=== PATIENT | male | born 1945 | race Caucasian/White ===

== ENCOUNTER 2017-06-20 04:00 | Inpatient (IN) ==
[2017-06-15 10:27] LABS: HEMATOCRIT 52.1 % (42.0-52.0); HEMOGLOBIN 18.4 g/dL (14.0-18.0); MCH 29.7 PG (27-31); MCHC 35.3 g/dL (33-37); MPV 10.4 FL (7.4-10.4); RBC 6.2 XMIL (4.7-6.1)
[2017-06-15 11:10] LABS: AGAP 11; BUN 14 mg/dL (8-22); CALCIUM 9.2 mg/dL (8.8-10.2); CHLORIDE 99 mmol/L (98-107); COSMO 280; SODIUM 140 mmol/L (136-145); TCO2 30 mmol/L (25-35)
[2017-06-20] MEDS ORDERED: VANCOMYCIN 1 GM/NS 1 GM/250 ML IVPB ONE (05:35)
[2017-06-20] MEDS ORDERED: LR 1,000 ML ONE (05:36)
[2017-06-20] MEDS ORDERED: DIPRIVAN 1% ONE (06:28)
[2017-06-20] MEDS ORDERED: XYLOCAINE-MPF 2% ONE ×2 (06:29→11:35)
[2017-06-20] MEDS ORDERED: SODIUM CHLORIDE 0.9% 10 ML ONE (06:30)
[2017-06-20] MEDS ORDERED: NORCURON ONE (06:30)
[2017-06-20] MEDS ORDERED: FENTANYL ONE ×2 (06:34→10:59)
[2017-06-20] MEDS ORDERED: NS 2,000 ML ONE (06:34)
[2017-06-20] MEDS ORDERED: HEPARIN ONE ×2 (06:34)
[2017-06-20] MEDS ORDERED: KEFZOL ONE (06:34)
[2017-06-20] MEDS ORDERED: NEO-SYNEPHRINE ONE (06:39)
[2017-06-20] MEDS ORDERED: EPHEDRINE ONE (07:07)
[2017-06-20] MEDS ORDERED: SENSORCAINE 0.5%-EPI 1:200,000 ONE (07:20)
[2017-06-20 07:52] LABS: URINE MICRO REVIEW NEEDED? NO; URINE SOURCE CATH
[2017-06-20 08:03] LABS: BILIRUBIN URINE NEGATIVE (NEGATIVE); BLOOD URINE NEGATIVE (NEGATIVE); COLOR YELLOW; GLUCOSE URINE NEGATIVE (NEGATIVE); LEUKOCYTES URINE NEGATIVE (NEGATIVE); NITRITE URINE NEGATIVE (NEGATIVE); PH URINE 7.5; PROTEIN URINE NEGATIVE (NEGATIVE); TURBIDITY URINE CLEAR (CLEAR); UROBILINOGEN URINE NORMAL (NORMAL)
[2017-06-20 08:04] LABS: UR EPITHELIAL CELLS <10 /HPF (<10); URINE BACTERIA NEGATIVE /HPF; URINE RBC <10 /HPF (<10); URINE WBC <10 /HPF (<10)
[2017-06-20] MEDS ORDERED: DECADRON ONE (08:15)
[2017-06-20] MEDS ORDERED: ZOFRAN ONE ×2 (08:15→10:54)
[2017-06-20] MEDS ORDERED: ROBINUL ONE ×2 (09:11→10:54)
[2017-06-20] MEDS ORDERED: NEOSTIGMINE ONE ×2 (09:11→11:02)
[2017-06-20] MEDS: MORPHINE ONE ×3 (09:37→10:05)
[2017-06-20] MEDS ORDERED: NS 1,000 ML ONE (10:06)
[2017-06-20] MEDS ORDERED: BYSTOLIC PO PRN (10:33)
[2017-06-20] MEDS ORDERED: ZOFRAN IV PRN (10:33)
[2017-06-20] MEDS ORDERED: ANDROGEL TD PRN (10:33)
[2017-06-20] MEDS ORDERED: NORCO-10 PO PRN (10:33)
[2017-06-20] MEDS ORDERED: DILAUDID IV PRN (10:33)
[2017-06-20] MEDS: NS 1,000 ML IV SCH (12:08)
[2017-06-20] MEDS: NICODERM PATCH TD SCH (16:30)
[2017-06-20] MEDS: CATAPRES PO PRN (16:32)
[2017-06-20] MEDS: NORCO-10 PO PRN ×2 (16:37→21:29)
[2017-06-20] MEDS: VANCOMYCIN 1 GM/NS 1 GM/250 ML IVPB IV SCH (17:51)
[2017-06-20] MEDS: LOTREL 5/20 MG PO SCH (21:30)
[2017-06-20] MEDS: XANAX PO PRN (21:30)
[2017-06-20] MEDS: PERIDEX MT SCH (21:30)
[2017-06-20] MEDS ORDERED: CHLORASEPTIC SPRAY MT PRN (23:46)
[2017-06-21] MEDS: PRILOSEC PO SCH ×2 (00:36→20:15)
[2017-06-21] MEDS: NS 1,000 ML IV SCH ×3 (02:57→10:59)
[2017-06-21] MEDS: NORCO-10 PO PRN ×5 (02:59→23:30)
[2017-06-21 06:12] LABS: BASO% 0.4 % (0.0-0.8); EOS# 0.09 X1000 (0.0-0.7); EOS% 0.4 % (0.0-10.0); HEMATOCRIT 47.9 % (42.0-52.0); HEMOGLOBIN 16.3 g/dL (14.0-18.0); IMM GRAN# 0.09 X1000 (0.0-0.04); IMM GRAN% 0.4 % (0.0-0.5); LYMPH# 9.78 X1000 (1.2-3.4); LYMPH% 38.8 % (20.5-51.1); MANUAL DIFF NEEDED? NO; MCH 29.4 PG (27-31); MCV 86.5 FL (81-99); MONO# 1.81 X1000 (0.11-0.59); MONO% 7.2 % (1.7-9.3); MPV 10.7 FL (7.4-10.4); NEUT% 52.8 % (42.2-75.2); PLT 302 X1000 (130-400); RBC 5.54 XMIL (4.7-6.1)
[2017-06-21 06:28] LABS: AGAP 10; BUN 7 mg/dL (8-22); CALCIUM 8.8 mg/dL (8.8-10.2); CHLORIDE 101 mmol/L (98-107); COSMO 278; POTASSIUM 4.6 mmol/L (3.5-5.1); SODIUM 140 mmol/L (136-145); TCO2 29 mmol/L (25-35)
[2017-06-21] MEDS: VANCOMYCIN 1 GM/NS 1 GM/250 ML IVPB IV SCH (06:37)
[2017-06-21] MEDS: PERIDEX MT SCH ×2 (10:58→20:15)
[2017-06-21] MEDS: LOTREL 5/20 MG PO SCH ×2 (10:59→20:15)
[2017-06-21] MEDS: ASPIRIN PO SCH (10:59)
[2017-06-21] MEDS: NICODERM PATCH TD SCH (10:59)
[2017-06-21] MEDS: LASIX PO SCH (10:59)
[2017-06-21] MEDS: CATAPRES PO PRN ×2 (11:06→17:40)
[2017-06-21] MEDS: XANAX PO PRN (17:39)
[2017-06-21] MEDS: BYSTOLIC PO SCH (20:15)
[2017-06-22] MEDS: NS 1,000 ML IV SCH (01:53)
[2017-06-22] MEDS: NORCO-10 PO PRN ×3 (04:11→11:42)
[2017-06-22] MEDS: XANAX PO PRN ×3 (04:17→22:19)
[2017-06-22] MEDS: LOTREL 5/20 MG PO SCH ×3 (07:58→22:19)
[2017-06-22] MEDS: NICODERM PATCH TD SCH ×2 (07:58→08:09)
[2017-06-22] MEDS: LASIX PO SCH ×2 (07:58→08:09)
[2017-06-22] MEDS: ASPIRIN PO SCH (07:59)
[2017-06-22] MEDS: PERIDEX MT SCH ×2 (07:59→22:20)
[2017-06-22 09:27] LABS: HEMATOCRIT 43.2 % (42.0-52.0); HEMOGLOBIN 14.7 g/dL (14.0-18.0)
[2017-06-22] MEDS ORDERED: DIPRIVAN 1% ONE ×2 (14:02→14:05)
[2017-06-22] MEDS ORDERED: XYLOCAINE-MPF 2% ONE (14:05)
[2017-06-22] MEDS ORDERED: QUELICIN (DOSE) ONE (14:24)
[2017-06-22] MEDS ORDERED: VANCOMYCIN 1 GM/NS 1 GM/250 ML IVPB ONE (14:27)
[2017-06-22] MEDS ORDERED: FENTANYL ONE (15:37)
[2017-06-22] MEDS: MORPHINE ONE ×3 (16:22→16:33)
[2017-06-22] MEDS: PRILOSEC PO SCH (22:19)
[2017-06-22] MEDS: BYSTOLIC PO SCH (22:19)
[2017-06-23] MEDS: CATAPRES PO PRN (00:34)
[2017-06-23] MEDS: NS 1,000 ML IV SCH (03:16)
[2017-06-23 06:11] LABS: BASO% 0.2 % (0.0-0.8); EOS# 0.03 X1000 (0.0-0.7); EOS% 0.1 % (0.0-10.0); HEMATOCRIT 33.4 % (42.0-52.0); HEMOGLOBIN 11.2 g/dL (14.0-18.0); IMM GRAN# 0.08 X1000 (0.0-0.04); IMM GRAN% 0.3 % (0.0-0.5); LYMPH# 7.98 X1000 (1.2-3.4); LYMPH% 30.7 % (20.5-51.1); MANUAL DIFF NEEDED? YES; MCH 29.7 PG (27-31); MCHC 33.5 g/dL (33-37); MCV 88.6 FL (81-99); MONO# 2.21 X1000 (0.11-0.59); MONO% 8.5 % (1.7-9.3); NEUT% 60.2 % (42.2-75.2); PLT 340 X1000 (130-400); RBC 3.77 XMIL (4.7-6.1)
[2017-06-23 06:41] LABS: LYMPHS 22 % (21-51); MONO 5 % (1-9)
[2017-06-23] MEDS: NICODERM PATCH TD SCH (09:03)
[2017-06-23] MEDS: PERIDEX MT SCH ×2 (09:03→20:52)
[2017-06-23] MEDS: LOTREL 5/20 MG PO SCH ×2 (09:03→20:52)
[2017-06-23] MEDS: ASPIRIN PO SCH (09:03)
[2017-06-23] MEDS: LASIX PO SCH (09:03)
[2017-06-23] MEDS ORDERED: SALINE LOCK IV FLUID XX ONE (12:31)
[2017-06-23] MEDS ORDERED: MIRALAX PO ONE (16:01)
[2017-06-23] MEDS: NORCO-10 PO PRN (16:18)
[2017-06-23] MEDS: BYSTOLIC PO SCH (20:52)
[2017-06-23] MEDS: XANAX PO PRN (20:52)
[2017-06-23] MEDS: PRILOSEC PO SCH (20:52)
[2017-06-24] MEDS ORDERED: LOPRESSOR IV ONE ×2 (04:23→05:36)
[2017-06-24 04:47] LABS: BASO% 0.5 % (0.0-0.8); EOS# 0.46 X1000 (0.0-0.7); EOS% 1.7 % (0.0-10.0); HEMATOCRIT 34.6 % (42.0-52.0); HEMOGLOBIN 11.7 g/dL (14.0-18.0); IMM GRAN# 0.12 X1000 (0.0-0.04); IMM GRAN% 0.4 % (0.0-0.5); LYMPH# 10.17 X1000 (1.2-3.4); LYMPH% 36.7 % (20.5-51.1); MANUAL DIFF NEEDED? YES; MCH 29.6 PG (27-31); MCHC 33.8 g/dL (33-37); MCV 87.6 FL (81-99); MONO# 1.93 X1000 (0.11-0.59); MPV 10.5 FL (7.4-10.4); NEUT% 53.7 % (42.2-75.2); PLT 449 X1000 (130-400); RBC 3.95 XMIL (4.7-6.1)
[2017-06-24 05:00] LABS: AGAP 12; BUN 12 mg/dL (8-22); CALCIUM 8.7 mg/dL (8.8-10.2); CHLORIDE 99 mmol/L (98-107); COSMO 277; MAGNESIUM 1.8 mg/dL (1.5-2.7); POTASSIUM 4.2 mmol/L (3.5-5.1); SODIUM 137 mmol/L (136-145); TCO2 26 mmol/L (25-35)
[2017-06-24 05:51] LABS: EOS 1 % (1-10); LYMPHS 33 % (21-51); MONO 7 % (1-9)
[2017-06-24] MEDS: XANAX PO PRN (06:46)
[2017-06-24] MEDS ORDERED: MIRALAX PO SCH (09:00)
[2017-06-24] MEDS: NICODERM PATCH TD SCH (09:34)
[2017-06-24] MEDS: ASPIRIN PO SCH (09:35)
[2017-06-24] MEDS: LOTREL 5/20 MG PO SCH (09:35)
[2017-06-24] MEDS: LASIX PO SCH (09:35)
[2017-06-24] MEDS: PERIDEX MT SCH (09:36)
[2017-06-24 12:24] VITALS: BP 139/85
== END 2017-06-24 16:08 | disposition home health service (06) ==
LOC: SURHOLD 04:00 → 4N 09:38
PROVIDERS: ADMIT Surgery; ATTEND Surgery

== ENCOUNTER 2017-06-24 17:43 | Inpatient (IN) ==
[2017-06-24] MEDS ORDERED: ASPIRIN PO STA (17:50)
[2017-06-24 18:27] LABS: BASO% 0.6 % (0.0-0.8); EOS# 0.54 X1000 (0.0-0.7); EOS% 2.2 % (0.0-10.0); HEMATOCRIT 32.9 % (42.0-52.0); HEMOGLOBIN 11.2 g/dL (14.0-18.0); IMM GRAN# 0.09 X1000 (0.0-0.04); IMM GRAN% 0.4 % (0.0-0.5); LYMPH# 9.94 X1000 (1.2-3.4); LYMPH% 40.1 % (20.5-51.1); MANUAL DIFF NEEDED? NO; MCH 29.6 PG (27-31); MONO# 1.55 X1000 (0.11-0.59); MONO% 6.2 % (1.7-9.3); MPV 10.4 FL (7.4-10.4); NEUT% 50.5 % (42.2-75.2); PLT 492 X1000 (130-400); RBC 3.78 XMIL (4.7-6.1)
[2017-06-24 18:37] LABS: INR 0.96; PROTIME 10.1 Seconds (9.2-11.7); PTT 31.1 Seconds (22.0-36.0)
[2017-06-24 18:49] LABS: AGAP 14; ALBUMIN 3.5 g/dL (3.5-5.0); ALKALINE PHOSPHATASE 58 U/L (32-122); BUN 16 mg/dL (8-22); CALCIUM 8.8 mg/dL (8.8-10.2); CHLORIDE 96 mmol/L (98-107); CK PROFILE 17 U/L (24-204); COSMO 273; GOT 16 U/L (10-34); GPT 20 U/L (10-44); MAGNESIUM 1.7 mg/dL (1.5-2.7); POTASSIUM 3.7 mmol/L (3.5-5.1); SODIUM 134 mmol/L (136-145); TCO2 24 mmol/L (25-35); TOTAL PROTEIN 6.7 g/dL (6.3-8.3)
--- NOTE | 2017-06-24 19:11 | Diag Imaging Result Doc PS360 ---
EXAM: CHEST-2 VIEWS HISTORY: CP TECHNIQUE: PA and lateral chest COMMENT: The thoracic aorta is markedly tortuous. The appearance the chest has not changed significantly since the previous examination of 03/16/2013. IMPRESSION: Stable chest. Electronically signed by Jemal Todd 06/24/2017 7:08 PM
[2017-06-24] MEDS ORDERED: ZOFRAN IV PRN (23:49)
[2017-06-24] MEDS ORDERED: NS 1,000 ML IV SCH (23:49)
[2017-06-24] MEDS ORDERED: BYSTOLIC PO PRN (23:49)
[2017-06-24] MEDS ORDERED: CATAPRES PO PRN (23:49)
[2017-06-25] MEDS: XANAX PO PRN ×2 (00:29→21:25)
--- NOTE | 2017-06-25 01:07 | HISTORY AND PHYSICAL ---
PRIMARY CARE PHYSICIAN: Dr. Juve Carrillo. CHIEF COMPLAINT: Palpitations. HISTORY OF PRESENTING ILLNESS: A 71-year-old male with a history of hypertension, CLL and transient atrial fibrillation in the past, who recently underwent AAA repair and postoperatively developed complications of a hematoma and apparently had a drain placed. Had went home when he developed some palpitation-like symptoms. The patient states that he had returned to the emergency department earlier today for that and at that time was found to be in atrial fibrillation with RVR and this was transient apparently and his rate had come down within normal limits. He was evaluated by Cardiology and at that time he was told to follow up with his numerical control drill press operator for possibly an event monitor. However, patient states that he went home and then he developed more palpitation symptoms and returned to the emergency department. He was evaluated in the ER. He was still in atrial fibrillation and due to his presenting symptoms it was thought that we will place him for observation for further evaluation and management. PAST MEDICAL HISTORY: Includes atrial fibrillation transiently, hypertension, CLL. 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 ALLERGIES: Levaquin and amoxicillin. CURRENT MEDICATIONS: As listed in the medication reconciliation sheet. SOCIAL HISTORY: Has a longstanding history of smoking. States that he quit a few days ago. History of alcohol use daily. Denies any illicit drug use. FAMILY HISTORY: No history of coronary artery disease. REVIEW OF SYSTEMS: Twelve point review of systems as in HPI. Other systems negative. PHYSICAL EXAMINATION: GENERAL: Cooperative, friendly male. He is resting comfortably now. VITAL SIGNS: Temperature 97.5 degrees, pulse 64, respiration 18, blood pressure 134/90. HEENT: Atraumatic, normocephalic. Extraocular movements intact. PERRLA. NECK: No masses. CHEST: Clear to auscultation. CARDIOVASCULAR: Regular rate and rhythm. ABDOMEN: Soft. Positive bowel sounds. EXTREMITIES: No edema. SKIN: There is a moderate amount of bruising on his back. GENITOURINARY: No bladder distention. SKIN: Warm. LABORATORIES AND STUDIES: WBCs 24.81, hemoglobin 11.2, hematocrit 32.9, platelets 492,000. Sodium 134, potassium 3.7, chloride 96, CO2 24, BUN is 16, creatinine 0.8, glucose is 169. ASSESSMENT: This is a 71-year-old male with a history of hypertension, CLL, and transient atrial fibrillation in the past. Had presented to the emergency department due to palpation-like symptoms. Patient recently underwent AAA repair and states that he had some postoperative complications with hematoma and subsequently had BAY drain placed. He developed palpitations while he was at home and subsequently returned to the emergency department and due to his presenting symptoms it was thought that we will place patient in hospital for observation for further evaluation and management. 1. Postoperative atrial fibrillation, seems transient. 2. Status post abdominal aortic aneurysm repair. 3. CLL. 4. Hypertension. 5. Tobacco abuse. PLAN: 1. We will admit patient to medical floor with telemetry. 2. We will consult his numerical control drill press operator for further evaluation. 3. Will do courtesy consult to General Surgery due to his recent AAA repair and hematoma development. 4. We will monitor his blood pressures. Resume antihypertensive agent. 5. We will restart his home medications. 6. We will put patient on DVT prophylaxis with SCDs. 7. We will continue to follow and reassess. cc: Checo Figueroa MD
[2017-06-25 06:18] LABS: BASO% 0.9 % (0.0-0.8); EOS# 0.63 X1000 (0.0-0.7); EOS% 3.2 % (0.0-10.0); HEMATOCRIT 32.9 % (42.0-52.0); HEMOGLOBIN 10.9 g/dL (14.0-18.0); IMM GRAN# 0.06 X1000 (0.0-0.04); IMM GRAN% 0.3 % (0.0-0.5); LYMPH# 8.89 X1000 (1.2-3.4); LYMPH% 44.7 % (20.5-51.1); MANUAL DIFF NEEDED? NO; MCH 29.3 PG (27-31); MCHC 33.1 g/dL (33-37); MCV 88.4 FL (81-99); MONO# 1.22 X1000 (0.11-0.59); MONO% 6.1 % (1.7-9.3); MPV 10.4 FL (7.4-10.4); NEUT% 44.8 % (42.2-75.2); PLT 516 X1000 (130-400); RBC 3.72 XMIL (4.7-6.1)
[2017-06-25 06:35] LABS: AGAP 12; BUN 14 mg/dL (8-22); CALCIUM 8.6 mg/dL (8.8-10.2); CHLORIDE 101 mmol/L (98-107); CK PROFILE 13 U/L (24-204); COSMO 284; SODIUM 141 mmol/L (136-145); TCO2 28 mmol/L (25-35)
[2017-06-25] MEDS: ASPIRIN PO SCH ×2 (09:52→11:55)
[2017-06-25] MEDS: LOTREL 5/20 MG PO SCH ×3 (09:53→21:16)
[2017-06-25] MEDS: LASIX PO SCH ×2 (09:53→11:55)
[2017-06-25] MEDS: PRILOSEC PO SCH ×2 (09:53→11:55)
[2017-06-25] MEDS: NORCO-10 PO PRN ×2 (13:19→21:21)
--- NOTE | 2017-06-25 14:22 | PROGRESS NOTE ---
DATE: 06/25/2017 SUBJECTIVE: The patient returned to the ER last night after discharge with recurrent palpitations and a little shortness of breath. He was found to be in atrial fibrillation with rapid rate. Otherwise his abdomen is not hurting much. His groin is doing well. There is no active bleeding. He is eating and having no other systemic complaints. He has been admitted to the hospitalist with cardiovascular reconsultation initiated. OBJECTIVE: He is afebrile. Vital signs are stable now. His pulse is in the 60s as of this morning, blood pressure 141/76.General: He is awake and alert. No acute distress. GI: Soft, nontender, nondistended. Extremities: The left groin has bruising but no hematoma. There is a drain with old bloody fluid. His left foot is warm and right foot is warm and appeared to be well perfused. LABORATORY: White blood cell count 19,000, hemoglobin 11, hematocrit 33. Basic metabolic profile reviewed and unremarkable. ASSESSMENT/PLAN: A 71-year-old male status post endo abdominal aortic aneurysm repair and evacuation of left groin hematoma now with recurrent atrial fibrillation with RVR. Further recommendations are per Cardiology. From an anticoagulant standpoint I do think it would be safe to initiate anticoagulants as needed. cc: Jamey Dixon MD
--- NOTE | 2017-06-25 14:32 | PROGRESS NOTE ---
DATE: 06/25/2017 SUBJECTIVE: This patient stated that he is feeling better, but he is complaining about his a-fib. He is being kept n.p.o. and I restarted his diet and also his home medication. He is not complaining of chest pain or shortness of breath. His abdomen looks fine. No signs of peritoneal irritation. On the left side, there is a big hematoma that is related with his previous surgery that is getting better. Also, he has a drain coming out from this area with some blood in it. OBJECTIVE: Vital Signs: Temperature 97.9 degrees, pulse 67, respiratory rate 20, blood pressure 141/76, O2 saturation 96 on room air. At the moment of my evaluation, his heart rate went up to 120s/130s. HEENT: Head normocephalic. No trauma. PERRLA. Neck: Supple. No jugular venous distention. No masses. Central trachea. Chest: Clear to auscultation. No wheezing. No rales. Cardiovascular: Irregularly irregular rate and rhythm, tachycardic. Abdomen: Soft. Mild tenderness to palpation at the level of the left lower quadrant. He has a drain coming out from this area with some blood in it. He has a large hematoma extending to the left thigh that looks fine. Extremities: No edema. No clubbing. No cyanosis. Neurological examination: The patient is alert and oriented x3. No focal neurological deficits. LABORATORY: WBC 19.8, hemoglobin 10.9, hematocrit 32.9, platelets 516. Sodium 141, potassium 4, chloride 101, bicarbonate 28, BUN 14, creatinine 0.7, glucose 138, calcium 8.6. Troponins negative x3. ASSESSMENT AND PLAN: 1. Postoperative atrial fibrillation. He has been having rapid ventricular response on and off. I will restart his home medications pending cardiology evaluation. 2. Status post abdominal aortic aneurysm repair. Aware. This looks fine. He has a drain coming out from his left lower quadrant abdomen. Everything looks stable. 3. Chronic lymphocytic leukemia, aware. 4. Hypertension. We will continue with home medication. 5. Tobacco abuse. This patient has been highly advised against tobacco use. I will continue with daily cessation education. cc: Duran Monahan MD
--- NOTE | 2017-06-25 17:28 | CONSULTATION ---
DATE OF CONSULTATION: 06/25/2017 INDICATION: Palpitations, atrial fibrillation. HISTORY OF PRESENT ILLNESS: Mr. Asher is a 71-year-old male with a history of hypertension, CLL and recent diagnosis of atrial fibrillation. He recently underwent a endo graft repair of a AAA and apparently had issues with a hematoma with a subsequent drain placement. He yesterday had some episodes of atrial fibrillation and was apparently sent home shortly thereafter. He got home and within 20-30 minutes began having significant palpitations, re-presented and was found to be in atrial fibrillation. Currently he is in sinus rhythm. PAST MEDICAL HISTORY: Significant for. 1. Hypertension. 2. AAA repair. 3. CLL. SOCIAL HISTORY: Longstanding smoking history but apparently reported quitting a few days ago. No illicit drugs. FAMILY HISTORY: Significant for coronary disease. REVIEW OF SYSTEMS: A 10 system review of systems is negative except for those mentioned in HPI. PHYSICAL EXAMINATION: Vital signs: He is afebrile. Heart rates in the 60s to 70s. Blood pressure 138/89. General: He is in no acute distress. HEENT: Oropharynx is moist. Normal dentition. Eye examination shows pink conjunctivae. White sclerae. Neck: Examination shows no obvious thyromegaly or thyroid tenderness. Cardiovascular: He is in a regular rate and rhythm. He has no obvious murmurs. He has no S3, no lower extremity edema, no carotid bruits. He currently seems to be in a sinus rhythm per telemetry. Chest: Clear bilaterally. No increased work of breathing. Abdomen: Soft, nontender, nondistended. He has no obvious organomegaly. Skin Exam: Warm and dry throughout without any rashes. Neurological: Moving all extremities well. Cranial nerves 2-12 are intact without any sensation deficits. : Notably he had a significant left-sided hematoma in the area with a drain placed. DATA: His EKG this morning at 8:28 shows sinus rhythm, QTc of 429. His presenting EKG was in atrial fibrillation at a rate of 122 beats per minute. His laboratory data shows a white count of 19.8, hematocrit 32.9, platelet count 516,000. His sodium is 141, potassium 4, BUN 14, creatinine 0.7. Cardiac enzymes are negative. His proBNP yesterday was 738. TSH is normal. ASSESSMENT: Atrial fibrillation. PLAN: We will initiate sotalol at 80 mg b.i.d. We will consider adding anticoagulation based on his CHADS-VASc score of at least 2 for age and hypertension. We will check an echocardiogram. We will have to hold him here for at least 4 doses of the sotalol to ensure he does not have QT prolongation. We will titrate his antihypertensives in the future. I have discontinued his Bystolic. cc: Tam Hawthorne MD
--- NOTE | 2017-06-25 18:57 | ECHO REPORT ---
ORDER DATE: 06/25/2017 INDICATION: Atrial fibrillation. FINDINGS: 1. Right atrium is very difficult to visualize. 2. Mild tricuspid regurgitation. RV systolic pressure 34. 3. Normal RV size and systolic function. 4. No significant pulmonic insufficiency. 5. Normal RV size and systolic function. 6. No significant pulmonic insufficiency on very poor views of the pulmonic valve. 7. Suggestion of moderate left atrial enlargement. 8. No mitral valve prolapse. Trace mitral regurgitation. 9. Very difficult views of the left ventricle. It does appear to be somewhat dilated with an end- diastolic dimension of 5.9 cm with no evidence of left ventricular hypertrophy. The estimated ejection fraction is likely somewhere around 50% but the irregularity of the rate and the poor quality views make it extremely difficult to estimate. May consider repeat in the future. 10. Aortic valve appears to open well. There is no evidence of stenosis or insufficiency. 11. The aorta appears normal in visualized segments. 12. No pericardial effusion seen. 13. On some views of the right atrium there appears to be some linear echo density, I am unclear of the exact etiology of this. May consider an alternative modality to assess this. cc: MD Mart Araujo CRNP
--- NOTE | 2017-06-25 20:49 | Diag Imaging Result Doc PS360 ---
EXAM: CT ANGIOGRM/PULMONARY ARTERIES HISTORY: afib, elevated D dimer, TECHNIQUE: CT of the chest with intravenous contrast with CT pulmonary artery protocol and 3-D MIPS and dose reduction (clarity.) COMMENT: The current study is compared without of 03/16/2013. There are no filling defects in the pulmonary arteries. There is no evidence of thoracic aortic dissection. The ascending aorta is slightly dilated to 4.2 cm, however this has not changed since the previous study. There is a small pericardial effusion which is less than 9 mm in thickness anterior to the right ventricle. This is slightly more voluminous than on the previous study. There are no pleural fluid collections. There are no acute bony abnormalities. There are fibrotic changes present in the right upper lobe which have not changed since the previous study. There is also some fibrosis in the right middle lobe- again this has not changed. There is minimal subsegmental atelectasis in the left lower lobe as well as some fibrosis. No acute pulmonary parenchymal disease is demonstrated. There is a somewhat irregular pulmonary nodule present on image 67 in the left upper lobe which was not present previously and measures slightly less than 7 mm in diameter. There are emphysematous changes in the upper lung zones. IMPRESSION: No evidence of pulmonary emboli. Minimal atelectasis. Pericardial effusion. Nonacute findings as described above. Electronically signed by Jemal Todd 06/25/2017 8:46 PM
[2017-06-25] MEDS: BETAPACE PO SCH (21:16)
[2017-06-25] MEDS ORDERED: MIRALAX PO ONE (23:37)
[2017-06-26] MEDS: XANAX PO PRN ×2 (04:26→21:27)
[2017-06-26 06:20] LABS: BASO% 1.1 % (0.0-0.8); EOS# 0.92 X1000 (0.0-0.7); EOS% 4.1 % (0.0-10.0); HEMOGLOBIN 11.4 g/dL (14.0-18.0); IMM GRAN# 0.09 X1000 (0.0-0.04); IMM GRAN% 0.4 % (0.0-0.5); LYMPH# 10.25 X1000 (1.2-3.4); LYMPH% 45.3 % (20.5-51.1); MANUAL DIFF NEEDED? YES; MCH 29.4 PG (27-31); MCHC 33.5 g/dL (33-37); MCV 87.6 FL (81-99); MONO# 1.54 X1000 (0.11-0.59); MONO% 6.8 % (1.7-9.3); MPV 10.2 FL (7.4-10.4); NEUT% 42.3 % (42.2-75.2); PLT 610 X1000 (130-400); RBC 3.88 XMIL (4.7-6.1)
[2017-06-26 06:45] LABS: AGAP 10; BUN 14 mg/dL (8-22); CALCIUM 8.6 mg/dL (8.8-10.2); CHLORIDE 100 mmol/L (98-107); COSMO 276; POTASSIUM 4.4 mmol/L (3.5-5.1); SODIUM 137 mmol/L (136-145); TCO2 27 mmol/L (25-35)
[2017-06-26 06:56] LABS: BANDS 4 % (0-1); EOS 4 % (1-10); LYMPHS 38 % (21-51); MONO 6 % (1-9)
[2017-06-26] MEDS: BETAPACE PO SCH ×2 (10:11→21:27)
[2017-06-26] MEDS: ASPIRIN PO SCH (10:11)
[2017-06-26] MEDS: LASIX PO SCH (10:11)
[2017-06-26] MEDS: LOTREL 5/20 MG PO SCH (10:11)
[2017-06-26] MEDS: NORCO-10 PO PRN ×2 (10:11→21:27)
[2017-06-26] MEDS: PRILOSEC PO SCH (10:11)
[2017-06-26] MEDS: MIRALAX PO SCH (10:12)
--- NOTE | 2017-06-26 13:07 | PROGRESS NOTE ---
DATE: 06/26/2017 SUBJECTIVE: The patient has no new complaints. He still has some occasional palpitations. OBJECTIVE: Vital Signs: He is afebrile. Vital signs are stable. General: He is alert and oriented x4. No acute distress. Gastrointestinal: Soft, nontender, nondistended. Extremities: The left groin is bruised but without hematoma. The drain has some serosanguineous fluid. LABORATORY: White blood cell count 22.6, hemoglobin 11.4, hematocrit 34, platelet count 610,000. Electrolytes reviewed and unremarkable. IMAGING: CTA of the chest last night shows no evidence of pulmonary emboli. There is minimal atelectasis. There is a small pericardial effusion as well as some emphysematous changes in the upper lung zones. ASSESSMENT AND PLAN: A 71-year-old male with atrial fibrillation status post recent endo abdominal aortic aneurysm repair as well as evacuation of left groin hematoma. From a surgical standpoint he is stable. He is being treated by the supervisor in circuit testing with sotalol. He will stay here again tonight. Dr. Hayward will reassess him tomorrow. cc: Jamey Dixon MD
[2017-06-26 13:11] LABS: AGAP 12; BUN 16 mg/dL (8-22); CALCIUM 8.8 mg/dL (8.8-10.2); CHLORIDE 100 mmol/L (98-107); COSMO 280; POTASSIUM 4.2 mmol/L (3.5-5.1); SODIUM 139 mmol/L (136-145); TCO2 27 mmol/L (25-35)
--- NOTE | 2017-06-26 13:49 | PROGRESS NOTE ---
DATE: 06/26/2017 SUBJECTIVE: Mr. Asher has not had any complaints over the last 24 hours. PHYSICAL EXAMINATION: Vital signs: He is afebrile. Heart rates are in the 60s to 70s predominantly. His blood pressure is 134/89. Systolics have been in the 130s to 150s. Diastolics in the 70s to 90s. Generally: No acute distress. Cardiovascular: He is in a regular rate and rhythm. Telemetry currently shows sinus rhythm. Chest: Clear to auscultation bilaterally. No increased work of breathing. Abdomen: Soft and nontender. PERTINENT DATA: He had an EKG this morning showing sinus rhythm 64 beats per minute. QTc interval was 449 with his proceeding QTc interval on the being 429. Laboratory data shows a white count of 22, hematocrit 34, platelet count 610,000. Sodium 137, BUN 14, creatinine 0.8. ASSESSMENT: Atrial fibrillation. PLAN: We will continue on sotalol 80 b.i.d. I have added in Pradaxa 150 b.i.d. which is appropriately dosed for his renal function. This was approved by the surgeons considering his recent issues with hematoma. I have increased his benazepril to 20 b.i.d. and will maintain him on the current dose of amlodipine. Hopefully this will take over the antihypertensive effect of the Bystolic that was discontinued. We could consider deescalation of his clonidine in the future and possible escalation of his amlodipine. If his EKG in the morning looks okay today he could be discharged home with follow up with me in 2-4 weeks. cc: Tam Hawthorne MD
--- NOTE | 2017-06-26 13:54 | PROGRESS NOTE ---
DATE: 06/26/2017 SUBJECTIVE: This patient states that he is feeling better, he is not complaining of palpitation today. His abdomen looks fine. No signs of peritoneal irritation. On the left side there is a big hematoma that is related with his previous surgery and this is stable. He has a drain coming out from this area with some serosanguineous material. OBJECTIVE: Vital Signs: Temperature 98 degrees, pulse 79, respiratory rate 20, blood pressure 134/89, O2 saturation 98 on room air. HEENT: Head normocephalic. No trauma. PERRLA. Neck: Supple. No JVD. No masses. Central trachea. Chest: Clear to auscultation. No wheezing. No rales. Cardiovascular: Irregularly irregular rate and rhythm. Abdomen: Soft, mild tenderness to palpation at the level of the left lower quadrant. He has a drain coming out from this area with some serosanguineous material in it. He has a large hematoma extending to the left side that looks stable. Extremities: No edema. No clubbing. No cyanosis. Neurological: The patient is alert and oriented x3. No focal neurological deficits. LABORATORY: WBC 22.6, hemoglobin 11.4, hematocrit 34, platelets 610,000. Sodium 137, potassium 4.4, chloride 100, bicarbonate 27, BUN 14, creatinine 0.8, glucose 124, calcium 8.6. ASSESSMENT AND PLAN: 1. Postoperative atrial fibrillation. Cardiology Department on board and they are trying sotalol on this patient every 12 hours, apparently he needs to receive 4 doses of this medication and the last 1 will be tomorrow morning, Cardiology Department following this patient closely. We will follow their recommendations. 2. Status post abdominal aortic aneurysm repair. Aware. This looks fine. He has a drain coming out from the left lower quadrant of his abdomen. Everything looks stable. 3. Chronic lymphocytic leukemia. This patient has leukocytosis and as per the patient it always has been like this. I asked him about his primary oncologist and he told me that he has not seen this doctor for some years, I asked him if he wants to be reevaluated by 1 of our doctors and he refused it. Will continue to monitor. 4. Hypertension. Will continue with home medication. 5. Tobacco abuse. This patient has been highly advised against tobacco abuse. I will continue with daily cessation education. cc: Duran Monahan MD
[2017-06-26] MEDS: LOTENSIN PO SCH (21:27)
[2017-06-26] MEDS: PRADAXA PO SCH (21:27)
[2017-06-26] MEDS: NORVASC PO SCH (22:49)
--- NOTE | 2017-06-27 05:50 | EKG Report ---
Test Performed on : 06/26/2017 05:52:48 AM Test Reason : afib Blood Pressure : / mmHG Vent. Rate : 064 BPM Atrial Rate : 064 BPM P-R Int : 160 ms QRS Dur : 082 ms QT Int : 436 ms P-R-T Axes : -15 024 065 degrees QTc Int : 449 ms Normal sinus rhythm. Possible Septal infarct , age undetermined Abnormal ECG When compared with ECG of 25-JUN-2017 08:28, (Unconfirmed) Septal infarct is now present Confirmed by Sancho Luke MD ([id number]) on 06/29/2017 6:03:52 PM
--- NOTE | 2017-06-27 06:20 | EKG Report ---
Test Performed on : 06/25/2017 08:28:33 AM Test Reason : eval rhythm Blood Pressure : / mmHG Vent. Rate : 068 BPM Atrial Rate : 068 BPM P-R Int : 184 ms QRS Dur : 084 ms QT Int : 404 ms P-R-T Axes : 063 067 080 degrees QTc Int : 429 ms Normal sinus rhythm. Normal ECG When compared with ECG of 24-JUN-2017 17:52, (Unconfirmed) Sinus rhythm. has replaced Atrial fibrillation. Vent. rate has decreased BY 54 BPM Confirmed by Sancho Luke MD ([id number]) on 06/29/2017 5:47:25 PM
[2017-06-27 06:27] LABS: BASO% 1.1 % (0.0-0.8); EOS# 0.85 X1000 (0.0-0.7); EOS% 3.6 % (0.0-10.0); HEMATOCRIT 35.9 % (42.0-52.0); HEMOGLOBIN 12.1 g/dL (14.0-18.0); IMM GRAN% 0.4 % (0.0-0.5); LYMPH# 10.87 X1000 (1.2-3.4); MANUAL DIFF NEEDED? YES; MCH 29.2 PG (27-31); MCHC 33.7 g/dL (33-37); MCV 86.7 FL (81-99); MONO# 1.59 X1000 (0.11-0.59); MONO% 6.7 % (1.7-9.3); NEUT% 42.2 % (42.2-75.2); PLT 688 X1000 (130-400); RBC 4.14 XMIL (4.7-6.1)
--- NOTE | 2017-06-27 06:51 | EKG Report ---
Test Performed on : 06/24/2017 5:52:24 PM Test Reason : re-ordered Blood Pressure : / mmHG Vent. Rate : 122 BPM Atrial Rate : 125 BPM P-R Int : 000 ms QRS Dur : 082 ms QT Int : 272 ms P-R-T Axes : 000 045 079 degrees QTc Int : 387 ms Atrial fibrillation. with rapid ventricular response. Abnormal ECG When compared with ECG of 24-JUN-2017 03:24, (Unconfirmed) No significant change was found Unconfirmed Result
[2017-06-27 07:14] LABS: EOS 6 % (1-10); HYPOCHROM 1+; LYMPHS 32 % (21-51); MONO 8 % (1-9)
--- NOTE | 2017-06-27 07:54 | EKG Report ---
Test Performed on : 06/27/2017 07:11:07 AM Test Reason : afib, sotalol dosing Blood Pressure : / mmHG Vent. Rate : 072 BPM Atrial Rate : 072 BPM P-R Int : 108 ms QRS Dur : 082 ms QT Int : 424 ms P-R-T Axes : 045 034 080 degrees QTc Int : 464 ms Sinus rhythm. with short AR with frequent premature ventricular complexes. Otherwise normal ECG When compared with ECG of 26-JUN-2017 05:52, (Unconfirmed) premature ventricular complexes. are now present Criteria for Septal infarct are no longer present Confirmed by Sancho Luke MD ([id number]) on 06/29/2017 6:21:39 PM
[2017-06-27] MEDS ORDERED: NORVASC PO SCH (09:00)
[2017-06-27] MEDS: NORVASC PO SCH (09:13)
[2017-06-27] MEDS: LOTENSIN PO SCH (09:15)
[2017-06-27] MEDS: BETAPACE PO SCH (09:15)
[2017-06-27] MEDS: ASPIRIN PO SCH (09:15)
[2017-06-27] MEDS: LASIX PO SCH (09:16)
[2017-06-27] MEDS: PRILOSEC PO SCH (09:17)
[2017-06-27] MEDS: PRADAXA PO SCH (09:17)
[2017-06-27] MEDS: MIRALAX PO SCH (09:22)
--- NOTE | 2017-06-27 11:49 | EKG Report ---
Test Performed on : 06/27/2017 11:01:11 AM Test Reason : ekg after 4th dose of betapace Blood Pressure : / mmHG Vent. Rate : 071 BPM Atrial Rate : 071 BPM P-R Int : 168 ms QRS Dur : 086 ms QT Int : 424 ms P-R-T Axes : 003 064 077 degrees QTc Int : 460 ms Normal sinus rhythm. Normal ECG When compared with ECG of 27-JUN-2017 07:11, (Unconfirmed) premature ventricular complexes. are no longer present Confirmed by Sancho Luke MD ([id number]) on 06/29/2017 6:26:05 PM
[2017-06-27 13:26] VITALS: BP 125/80
--- NOTE | 2017-06-30 17:52 | PROVIDER DOCUMENTATION ---
This chart was entered by Smitha Lieberman Scribe, acting as scribe for Marlon Carrera DO. HPI-Cardiac General - General Chief Complaint: Chest Pain Stated Complaint: A FIB Time Seen by Provider: 06/24/17 18:11 Source: patient Allergies/Adverse Reactions: Patient Allergies Allergy/AdvReac Type Severity Reaction Status Date / Time levofloxacin [From Levaquin] Allergy Intermediate tremors Verified 06/24/17 18: 42 amoxicillin Allergy causes a Verified 06/24/17 18:42 fib Home Medications: Home Medication List Medication Instructions Recorded Confirmed Last Taken Type AMLODIPINE/BENAZEpril [Lotrel /20 1 each PO BID 03/16/13 06/24/17 06/24/17 08: 00 History mg] Aspirin 81 mg PO DAILY 03/16/13 06/24/17 06/24/17 08:00 History Clonidine [Catapres] 0.15 mg PO 4XDAY PRN PRN 03/16/13 06/24/17 06/24/17 15:00 History Hydrocodone Bit/Acetaminophen 1 each PO 4XDAY PRN 03/16/13 06/24/17 06/24/17 17: 00 History [Hydrocodon-Acetaminophn 10-325] Nebivolol [Bystolic] 5 mg PO BID PRN PRN 03/16/13 06/24/17 06/24/17 08:00 History Testosterone [Androgel] 2.5 gm TD PRN PRN 03/16/13 06/24/17 06/18/17 08:00 History Alprazolam [Xanax] 0.5 mg PO TID PRN PRN 06/15/17 06/24/17 06/24/17 17:00 History Furosemide [Lasix] 20 mg PO DAILY 06/15/17 06/24/17 06/24/17 09:00 History Omeprazole [Prilosec] 40 mg PO DAILY 06/15/17 06/24/17 06/19/17 06:00 History - History of Present Illness-Cardiac Nature of Presenting Problem: 71 year-old male presents to the ER with A-fib. He had surgery on 06/20/17 to repair an aortic aneurysm. He had a second surgery on 06/22/17 due to having a bleeding vessel in his abdomen that needed to be repaired. He had an episode of A-fib while in the hospital this morning at 03:00. He was treated and was discharged to home this afternoon. He had been home a short time when he began to have A-fib. His heart was fluttering with rapid palpitations. He has had mild shortness of breath. He has soreness in his abdomen along with a drainage device in place. He denies any chest pain, nausea, vomiting, and presents no other symptoms at this time. Quality of Pain: reports: none Severity in ED: mild Onset/Duration: 1-3 hours ago Timing: still present Context/Activities at Onset: reports: light activity Modifying Factors: improves with: lying down (Improves), rest (Improves) Palpitation Quality: fast/pounding heart beat History of arrythmia: reports: A-Fib Recent use of:: reports: no stimulants Nitro Today/Relief: reports: no nitro taken today Aspirin Treatment Today: reports: 81 mg x 1 Prior Chest Pain/Cardiac Workup: reports: cardiac cath Associated Symptoms: reports: abdominal pain (Post surgical.), back pain ( Chronic), shortness of breath (Mild) Similar Symptoms Previously?: Yes Recently Seen Here or By Another Healthcare Provider: Yes (Hospitalized this week for aortic aneurysm repair. ) Review of Systems - Adult - REVIEW OF SYSTEMS - ADULT Constitutional: reports: no symptoms reported, see HPI Eyes: reports: no symptoms reported, see HPI Ears, Nose, Mouth & Throat: reports: no symptoms reported, see HPI Cardiovascular: reports: see HPI, irregular heart rate, palpitations Respiratory: reports: see HPI, shortness of breath Gastrointestinal: reports: see HPI, abdominal pain (Post op pain.) Genitourinary: reports: no symptoms reported, see HPI Musculoskeletal: reports: no symptoms reported, see HPI Integumentary: reports: no symptoms reported, see HPI Neurological: reports: no symptoms reported, see HPI Psychiatric: reports: no symptoms reported, see HPI Endocrine: reports: no symptoms reported, see HPI Hematologic/Lymphatic: reports: no symptoms reported, see HPI Allergic/Immunologic: reports: no symptoms reported, see HPI All Other Systems: Reviewed and Negative Past History - Adult - PAST MEDICAL HISTORY-ADULT Review of Records: reports: Old Records Reviewed, Nursing Assessment Review, Medications Reviewed, Social history reviewed & non-contributory. Cardiovascular: reports: A-Fib, HTN Respiratory: reports: denies history Gastrointestinal: reports: denies history Genitourinary: reports: denies history Musculoskeletal: reports: chronic pain (Degenerative disc disease.) Hand Dominance: Right Handed Neurological: reports: denies history Psychiatric: reports: denies history Endocrine/Immune: reports: denies history - PRIOR SURGERIES/PROCEDURES Surgical/Procedure History: reports: recent surgery, cholecystectomy, other ( Aortic aneurysm repair.) - FAMILY HISTORY Family History: reviewed, not pertinent - SOCIAL HISTORY Smoking: quit less than 1 year Substance Use: none/never Alcohol Use Frequency: occasionally Living Situation: family Physical Exam-General - PHYSICAL EXAM-ADULT Initial Vital Signs Reviewed: Yes - CONSTITUTIONAL General Appearance: appears well, alert, no apparent distress - EYES Eyes: PERRL/EOMI. negative: subconjunctival hemorrhage - HEAD, EARS, NOSE, MOUTH & THROAT HENMT: normocephalic/atraumatic, moist mucous membranes - NECK Neck: non-tender, full range of motion, supple, normal inspection - RESPIRATORY Respiratory: chest non-tender, lungs clear, normal breath sounds, no pleuratic chest pain, no respiratory distress, no accessory muscle use - CARDIOVASCULAR Cardiovascular: normal peripheral pulses, tachycardia - GASTROINTESTINAL (ABDOMEN) Abdominal Exam: normal bowel sounds, soft, tenderness (Mild tenderness to palpation over lower abdomen. Surgical dressing in place that is clean dry and intact with no evidence of erythema or drainage present. Wound drain in place.) - LYMPHATIC Lymphatic: no adenopathy - MUSCULOSKELETAL Back Exam: normal inspection, no CVA tenderness, no vertebral tenderness Extremity: normal range of motion, non-tender - SKIN Integumentary: normal color, warm/dry. negative: erythema, rash, tenderness - NEUROLOGIC Neurologic: academic records specialist II-XII nml as tested, grossly normal Progress - PLAN OF CARE/RESULTS Progress/Plan/Lab Results: Vital Signs - 8 hr 06/24/17 17:47 06/24/17 18:43 06/24/17 21:35 Temperature 97.5 F L Pulse Rate 64 94 H 74 Respiratory Rate 18 18 22 Blood Pressure 134/90 126/87 136/79 O2 Sat by Pulse Oximetry 100 97 97 06/24/17 22:11 Temperature Pulse Rate 67 Respiratory Rate 26 H Blood Pressure 128/80 O2 Sat by Pulse Oximetry 94 L Laboratory Results - last 24 hr 06/24/17 06/24/17 06/24/17 18:15 18:15 18:15 WBC 24.81 H RBC 3.78 L Hgb 11.2 L Hct 32.9 L MCV 87.0 MCH 29.6 MCHC 34.0 RDW Std Deviation 15.1 H Plt Count 492 H MPV 10.4 Immature Gran % (Auto) 0.4 Neut % (Auto) 50.5 Lymph % (Auto) 40.1 [place] % (Auto) 6.2 Eos % (Auto) 2.2 Baso % (Auto) 0.6 Immature Gran # (Auto) 0.09 H Neut # (Auto) 12.55 H Lymph # (Auto) 9.94 H [place] # (Auto) 1.55 H Eos # (Auto) 0.54 Baso # (Auto) 0.14 PT INR PTT (Actin FS) D-Dimer 0.66 H Sodium 134 L Potassium 3.7 Chloride 96 L Carbon Dioxide 24 L Anion Gap 14 BUN 16 Creatinine 0.8 Estimated GFR/1.73 m2 > 60 BUN/Creatinine Ratio 20 Glucose 169 H Calculated Osmolality 273 Calcium 8.8 Magnesium 1.7 Total Bilirubin 0.60 AST 16 ALT 20 Alkaline Phosphatase 58 Creatine Kinase 17 L Troponin T Une-P-Pohhfbktygx Pept Total Protein 6.7 Albumin 3.5 Globulin 3.2 Albumin/Globulin Ratio 1.1 Plasma Lactate TSH Free T4 06/24/17 06/24/17 06/24/17 18:15 18:15 18:15 WBC RBC Hgb Hct MCV MCH MCHC RDW Std Deviation Plt Count MPV Immature Gran % (Auto) Neut % (Auto) Lymph % (Auto) [place] % (Auto) Eos % (Auto) Baso % (Auto) Immature Gran # (Auto) Neut # (Auto) Lymph # (Auto) [place] # (Auto) Eos # (Auto) Baso # (Auto) PT 10.1 INR 0.96 PTT (Actin FS) 31.1 D-Dimer Sodium Potassium Chloride Carbon Dioxide Anion Gap BUN Creatinine Estimated GFR/1.73 m2 BUN/Creatinine Ratio Glucose Calculated Osmolality Calcium Magnesium Total Bilirubin AST ALT Alkaline Phosphatase Creatine Kinase Troponin T < 0.010 Mdl-E-Tncdmxqqcbb Pept 738 H Total Protein Albumin Globulin Albumin/Globulin Ratio Plasma Lactate TSH Free T4 06/24/17 06/24/17 06/24/17 18:30 18:30 19:56 WBC RBC Hgb Hct MCV MCH MCHC RDW Std Deviation Plt Count MPV Immature Gran % (Auto) Neut % (Auto) Lymph % (Auto) [place] % (Auto) Eos % (Auto) Baso % (Auto) Immature Gran # (Auto) Neut # (Auto) Lymph # (Auto) [place] # (Auto) Eos # (Auto) Baso # (Auto) PT INR PTT (Actin FS) D-Dimer Sodium Potassium Chloride Carbon Dioxide Anion Gap BUN Creatinine Estimated GFR/1.73 m2 BUN/Creatinine Ratio Glucose Calculated Osmolality Calcium Magnesium Total Bilirubin AST ALT Alkaline Phosphatase Creatine Kinase Troponin T Bck-L-Vqdbipeahhd Pept Total Protein Albumin Globulin Albumin/Globulin Ratio Plasma Lactate 1.4 TSH 0.32 Free T4 1.49 06/24/17 06/24/17 19:56 19:56 WBC RBC Hgb Hct MCV MCH MCHC RDW Std Deviation Plt Count MPV Immature Gran % (Auto) Neut % (Auto) Lymph % (Auto) [place] % (Auto) Eos % (Auto) Baso % (Auto) Immature Gran # (Auto) Neut # (Auto) Lymph # (Auto) [place] # (Auto) Eos # (Auto) Baso # (Auto) PT INR PTT (Actin FS) D-Dimer Sodium Potassium Chloride Carbon Dioxide Anion Gap BUN Creatinine Estimated GFR/1.73 m2 BUN/Creatinine Ratio Glucose Calculated Osmolality Calcium Magnesium Total Bilirubin AST ALT Alkaline Phosphatase Creatine Kinase 14 L Troponin T < 0.010 Dlu-R-Xgajkyuscyc Pept Total Protein Albumin Globulin Albumin/Globulin Ratio Plasma Lactate TSH Free T4 Orders Category Date Time Status CHEST-2 VIEWS [RAD] Stat Exams 06/24/17 17:50 Completed CBC WITH ELECTRONIC DIFF [HEME] Stat Lab 06/24/17 18:15 Completed CK PROFILE [SP CHEM] Stat Lab 06/24/17 18:15 Completed CK PROFILE [SP CHEM] Stat Lab 06/24/17 19:56 Completed COMPREHENSIVE METABOLIC PANEL [CHEM] Stat Lab 06/24/17 18:15 Completed D-DIMER [CHEM] Stat Lab 06/24/17 18:15 Completed FREE T4 Stat Lab 06/24/17 18:30 Completed LACTATE, PLASMA [CHEM] Stat Lab 06/24/17 19:56 Completed MAGNESIUM [CHEM] Stat Lab 06/24/17 18:15 Completed PRO B-NATRIURETIC PEPTIDE Stat Lab 06/24/17 18:15 Completed PROTIME WITH INR [COAG] Stat Lab 06/24/17 18:15 Completed PTT [COAG] Stat Lab 06/24/17 18:15 Completed TROPONIN T Stat Lab 06/24/17 18:15 Completed TROPONIN T Stat Lab 06/24/17 19:56 Completed TSH Stat Lab 06/24/17 18:30 Completed Aspirin Med 06/24/17 17:50 Discontinued 325 mg PO STAT STA EKG [EKG] Stat Ther 06/24/17 17:50 Ordered this patient got abdominal aortic aneurysm repair done 5 days ago and was discharged today. Came back with palpitations and when he came back he is under atrial fibrillation with RVR. later his heart rate came down to 90s. His BNP is high. Result Diagrams: 06/24/17 18:15 06/24/17 18:15 - EKG 1 Time of EKG reading by physician:: 17:52 EKG Read and Signed by:: Marlon Carrera EKG Interpretation (*Must complete 3 of following elements*): Abnormal Rate: 122 Rhythm: Atrial fibrilaltion with rapid ventricular response. ST Wave: normal - XRAY 1 XRAY Study: Chest Impression: Normal (COMMENT: The thoracic aorta is markedly tortuous. The appearance the chest has not changed significantly since the previous examination of 03/16/2013. IMPRESSION: Stable chest.) Departure - Departure Date of Disposition Decision: 06/24/17 Time of Disposition Decision: 22:37 DIAGNOSIS: Atrial fibrillation Disposition: ADMITTED INPATIENT 09 Certified Medical Emergency: Emergent Condition: Critical Referrals and Follow-Ups: Jhonny Hayward MD [Primary Care Provider] - - Critical Care Note This patient required my direct & personal management of CC.: No Attestation - Physician/ SHANI Attestation The physician spent face to face time with patient:: Yes Advanced Practice Provider documentation review:: Supervising physician onsite and consulted in the evaluation and care of this patient. The physician did have a face to face encounter with the patient. This chart was documented by the indicated scribe, (Smitha Lieberman Scribe) and accurately reflects the services I performed and decisions made by me, Marlon Carrera DO, as attested by the provider's signature.
--- NOTE | 2017-07-05 05:07 | DISCHARGE SUMMARY ---
ADMISSION DATE: 06/27/2017 DISCHARGE DATE: 06/27/2017 FINAL DISCHARGE DIAGNOSES: 1. Atrial fibrillation. 2. Status post abdominal aortic aneurysm repair performed on June 20, 2017. 3. Hypertension. 4. Chronic lymphocytic leukemia. 5. Tobacco abuse. CONSULTATIONS REQUESTED DURING THIS HOSPITAL STAY: 1. General Surgery consultation, with Dr. Dixon. 2. Cardiology consultation, with Dr. Hawthorne. IMAGING PERFORMED DURING THIS HOSPITAL STAY: 1. Pulmonary arteriogram performed on June 25, 2017, that revealed no evidence of pulmonary emboli. 2. A echocardiogram performed on June 25, 2017, that revealed an ejection fraction of about 50%. HOSPITAL COURSE: Mr. Asher is a 71-year-old male with a history of a AAA repair performed on June 20, [address] Hayward, who presented to the ER with a chief complaint of palpitations. An EKG was done in the ER that revealed that the patient was in AFib with RVR with a rate of 122 beats per minute. In light of this finding, the patient was admitted to the hospitalist service, and Cardiology was consulted for further assistance with management. A 2-dimensional echocardiogram was done that revealed an ejection fraction of 50%. It was recommended by the freight elevator erector that the patient be started on sotalol at 80 mg twice a day, and his Bystolic was discontinued. The patient's rate was noted to be adequately controlled on this new regimen. Also Pradaxa was added as an anticoagulant. The patient was initially going to be sent home on Eliquis. However, his insurance would not pay for it. So the patient was placed on Pradaxa instead. DISCHARGE MEDICATIONS: 1. Pradaxa 150 mg p.o. twice a day. 2. Sotalol 80 mg p.o. twice a day. 3. [place] 10/325 one tab oral 4 times a day p.r.n. 4. AndroGel 2.5 g transdermal use as directed. 5. Aspirin 81 mg p.o. daily. 6. Lotrel 1 tab oral twice a day. 7. Omeprazole 40 mg p.o. daily. 8. Lasix 20 mg p.o. daily. 9. Xanax 0.5 mg p.o. 3 times a day p.r.n. for anxiety. DISCHARGE DIET: Low-cholesterol, low-sodium diet. ACTIVITY: As tolerated. FOLLOWUP INSTRUCTIONS: The patient will need to follow up with Dr. Tam Hawthorne as scheduled by his clinic. The patient will need to follow up with Dr. Hayward as scheduled by his clinic. cc: MD Juve Leslie MD
== END 2017-06-27 15:13 | disposition home or self-care (01) ==
LOC: 4N 17:43 → ED 17:43 → SUATTDRO 23:41
PROVIDERS: ATTEND Internal Medicine